=== PATIENT | female | born 2000 | race Caucasian/White ===

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

== ENCOUNTER → 2021-03-18 | Outpatient (CLI) | payer OTHER ==
--- NOTE | 2021-03-18 12:55 | XR ---
EXAMINATION TYPE: XR knee complete LT DATE OF EXAM: 03/18/2021 COMPARISON: None HISTORY: Left knee pain following fall TECHNIQUE: 3 view left knee FINDINGS: Joint spaces are preserved. No joint effusion is evident. No acute fractures or dislocation s are evident. There is a sclerotic area with smooth margins in the head of the fibula likely is a b [place]. Follow up exams can be performed 7-10 days from acute trauma for continued pain. IMPRESSION: 1. No acute osseous abnormality left knee
== END | disposition home or self-care (01) ==
LOC: RADXRMAIN 12:24
PROVIDERS: ATTEND Family Medicine
DX: M25.562 Pain in left knee (principal)

== ENCOUNTER → 2021-08-29 | Outpatient (CLI) | payer OTHER ==
--- NOTE | 2021-08-29 14:13 | US ---
EXAMINATION TYPE: US kidneys/renal and bladder DATE OF EXAM: 08/29/2021 COMPARISON: Ultrasound abdomen August 23, 2017 CLINICAL HISTORY: N28.9 Kidney pain. Bilateral back pain, labs and urine normal EXAM MEASUREMENTS: Right Kidney: 9.7 x 4.6 x 5.3 cm Left Kidney: 10.7 x 4.1 x 6.8 cm Right Kidney: No hydronephrosis or masses seen Left Kidney: No hydronephrosis or masses seen Bladder: wnl Bilateral Jets seen: Yes There is no evidence for hydronephrosis at this point in time. No nephrolithiasis is seen. No aaliyah s are identified. The urinary bladder is satisfactorily distended. Bilateral ureteral jets are seen . IMPRESSION: No acute findings are evident.
== END | disposition home or self-care (01) ==
LOC: RADUSWWP 13:22
PROVIDERS: ATTEND Family Medicine
DX: N28.9 Disorder of kidney and ureter, unspecified (principal)
CPT/HCPCS: 76770

== ENCOUNTER → 2022-09-28 | Outpatient (CLI) | payer OTHER ==
--- NOTE | 2022-09-28 15:03 | US ---
EXAMINATION TYPE: US pelvis complete transvag DATE OF EXAM: 09/28/2022 COMPARISON: NONE CLINICAL HISTORY: N92.6 IRREGULAR MENSTRUATION, UNSPECIFIED. Irregular menses, right pelvic pain TECHNIQUE: Transvaginal (TV) and Transabdominal (TA) . Transabdominal sonographic images of the pel vis were acquired. Transvaginal sonographic images were medically necessary to better assess the fol lowing anatomy: ovaries Date of LMP: 09/25/22 EXAM MEASUREMENTS: Uterus: 8.3 x 6.3 x 4.0 cm Endometrial Stripe: 0.3 cm Right Ovary: 3.3 x 1.6 x 1.8 cm Left Ovary: 2.5 x 1.7 x 1.4 cm 1. Uterus: Anteverted wnl 2. Endometrium: wnl 3. Right Ovary: follicles noted 4. Left Ovary: follicles noted 5. Bilateral Adnexa: wnl 6. Posterior cul-de-sac: small amount of free fluid IMPRESSION: 1. No evidence for acute process. 2. Endometrium within normal limits for thickness.
== END | disposition home or self-care (01) ==
LOC: RADUSWWP 12:12
PROVIDERS: ATTEND Obstetrics & Gynecology
DX: N92.6 Irregular menstruation, unspecified (principal)
CPT/HCPCS: 76830; 76856

== ENCOUNTER → 2024-04-11 | Outpatient (CLI) | payer BC | END | disposition home or self-care (01) | LOC: LABPRL 08:45 | PROVIDERS: ATTEND Nurse Practitioner Family | DX: R19.7 Diarrhea, unspecified (principal); E87.8 Other disorders of electrolyte and fluid balance, not elsewhere classified | CPT/HCPCS: 80053; 82150; 83690; 85025 ==